=== PATIENT | male | born 1995 | race Caucasian/White ===

== ENCOUNTER 2017-11-17 08:03 | Emergency (ER) | payer OTHER ==
[2017-11-17 08:04] VITALS: TEMP 36.8
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
[2017-11-17 10:25] VITALS: BP 128/94; PULSE 90; O2SAT 100
== END 2017-11-17 10:26 | disposition home or self-care (01) ==
LOC: C.EDB 08:06
DX: Z04.3 Encounter for examination and observation following other accident (principal); V49.40XA Driver injured in collision with unspecified motor vehicles in traffic accident, initial encounter